=== PATIENT | female | born 1960 | race Caucasian/White ===

== ENCOUNTER 2018-03-05 12:30 | Emergency (ER) | END 2018-03-05 14:44 | disposition home or self-care (01) ==

== ENCOUNTER 2018-03-07 18:04 | Emergency (ER) | END 2018-03-07 19:18 | disposition home or self-care (01) ==

== ENCOUNTER 2018-04-01 10:25 | Emergency (ER) | END 2018-04-01 16:32 | disposition home or self-care (01) ==

== ENCOUNTER 2018-06-14 08:43 | Emergency (ER) | END 2018-06-14 10:07 | disposition home or self-care (01) ==

== ENCOUNTER 2018-07-23 11:47 | Emergency (ER) | END 2018-07-23 16:14 | disposition home or self-care (01) ==